=== PATIENT | male | born 1970 | race Caucasian/White ===

== ENCOUNTER → 2016-10-16 | Outpatient (CLI) | payer OTHER ==
--- NOTE | 2016-10-16 15:08 | REP ---
Clinical: Pain. Technique: Internal rotation, external rotation, and Y view of the right shoulder. Findings: Moderate inferior spurring and cortical irregularity at the acromioclavicular joint as well as the a subtle inferior spur along the lower margin of the humeral head consistent with mild arthritic degenerative changes. No acute fracture or dislocation. No periarticular calcifications. Impression: Mild arthritic degenerative changes. Signed by Bryan Steve MD 10/16/2016 03:00 P
== END ==
LOC: M WUC 14:47
PROVIDERS: ATTEND Physician Assistant
DX: M25.511 Pain in right shoulder (principal); M19.011 Primary osteoarthritis, right shoulder

== ENCOUNTER → 2017-10-14 | Outpatient (REF) | payer OTHER ==
[2017-10-14 20:33] LABS: URIC ACID 7.4 MG/DL (3.5-7.2)
== END ==
LOC: M LAB REF 19:05
DX: M79.672 Pain in left foot (principal)

== ENCOUNTER → 2020-04-03 | Outpatient (CLI) | payer OTHER ==
--- NOTE | 2020-04-17 12:36 | REP ---
RIGHT KNEE X-RAY: CLINICAL: Medial pain TECHNIQUE: AP, lateral, bilateral oblique and sunrise views of the right knee. FINDINGS: Moderate tricompartmental arthritic changes are appreciated. Findings include increased sclerosis along the tibial plateau and posterior patellar margin with associated patellofemoral and tibiofemoral joint space narrowing. Spurring along the tibial spines and along the lateral and inferior margin of the patella noted. No acute fracture or dislocation. No effusion. IMPRESSION: Moderate tricompartmental arthritic changes. MTDD
== END ==
LOC: M WUC 11:17
PROVIDERS: ATTEND Physician Assistant
DX: M17.11 Unilateral primary osteoarthritis, right knee (principal)

== ENCOUNTER → 2021-06-16 | Outpatient (CLI) | payer OTHER ==
[2021-06-16 16:21] LABS: BASO # 0.1 10^3/uL (0.0-0.2); EOS # 0.2 10^3/uL (0.0-0.5); EOS % 3.1 % (0.0-3.0); HEMATOCRIT 43.8 % (42.0-52.0); HEMOGLOBIN 14.5 g/dl (13.5-17.5); LYMPH # 2.3 10^3/uL (1.5-5.0); LYMPH % 37.3 % (24.0-44.0); MEAN CORPUSCULAR HEMOGLOBIN 31.3 pg (27.0-33.0); MEAN CORPUSCULAR HGB CONC 33.1 g/dl (32.0-36.5); MEAN CORPUSCULAR VOLUME 94.6 fl (80.0-96.0); MONO # 0.4 10^3/uL (0.0-0.8); MONO % 6.7 % (2.0-8.0); NEUTROPHILS # 3.1 10^3/uL (1.5-8.5); NEUTROPHILS % 51.4 % (36.0-66.0); PLATELET COUNT, AUTOMATED 290 10^3/uL (150-450); RED BLOOD COUNT 4.63 10^6/uL (4.30-6.10); WHITE BLOOD COUNT 6.1 10^3/uL (4.0-10.0)
[2021-06-16 16:55] LABS: C REACTIVE PROTEIN QUANTITATIV 0.42 MG/DL (0.00-0.30); RHEUMATOID FACTOR QUANT < 10.0 IU/ML (<15.0); URIC ACID 6.7 MG/DL (3.5-7.2)
[2021-06-16 17:03] LABS: ERYTHROCYTE SEDIMENTATION RATE 7 mm/hr (0-20)
[2021-06-19 14:12] LABS: ANTI DOUBLE STRAND-DNA AB <1 IU/mL (0-9); ANTINUCLEAR ANTIBODIES DIRECT Positive (Negative); Lyme Disease IgG Ab 18 kDa Ban Absent (.); Lyme Disease IgG Ab 23 kDa Ban Absent (.); Lyme Disease IgG Ab 28 kDa Ban Absent (.); Lyme Disease IgG Ab 30 kDa Ban Absent (.); Lyme Disease IgG Ab 39 kDa Ban Absent (.); Lyme Disease IgG Ab 41 kDa Ban Absent (.); Lyme Disease IgG Ab 45 kDa Ban Absent (.); Lyme Disease IgG Ab 58 kDa Ban Absent (.); Lyme Disease IgG Ab 66 kDa Ban Absent (.); Lyme Disease IgG Ab 93 kDa Ban Absent (.); Lyme Disease IgG West Blot Int Negative (.); Lyme Disease IgG/IgM Antibodie <0.91 ISR (0.00-0.90); Lyme Disease IgM Ab 23 kDa Ban Absent (.); Lyme Disease IgM Ab 39 kDa Ban Absent (.); Lyme Disease IgM Ab 41 kDa Ban Absent (.); Lyme Disease IgM Ab Quantitati 1.05 index (0.00-0.79); Lyme Disease IgM West Blot Int Negative (.); RNP ANTIBODIES 0.5 AI (0.0-0.9); SJOGREN'S ANTI SS-A <0.2 AI (0.0-0.9); SJOGREN'S ANTI SS-B 2.5 AI (0.0-0.9); SMITH ANTIBODIES <0.2 AI (0.0-0.9)
== END ==
LOC: M WUC 11:49
PROVIDERS: ATTEND Physician Assistant Surgical
DX: M17.11 Unilateral primary osteoarthritis, right knee (principal)

== ENCOUNTER → 2021-12-03 | Outpatient (CLI) | payer OTHER | LOC: M WUC 11:51 | DX: M79.675 Pain in left toe(s) (principal) ==

== ENCOUNTER → 2023-05-18 | Outpatient (CLI) | payer OTHER | LOC: M WUC 11:17 | PROVIDERS: ATTEND Physician Assistant | DX: M77.11 Lateral epicondylitis, right elbow (principal); M19.012 Primary osteoarthritis, left shoulder; M77.8 Other enthesopathies, not elsewhere classified ==